=== PATIENT | male | born 1995 | race Caucasian/White ===

== ENCOUNTER 2016-09-12 08:26 | Emergency (ER) | payer BC, OTHER ==
[2016-09-12 08:36] VITALS: BP 134/78
[2016-09-12] MEDS ORDERED: Sulfacetamide 10 % OPTH.SOL LEFT EYE ONE (10:20)
[2016-09-12] MEDS ORDERED: Tetan/Diph/Pertus SYR(Tdap)* 0.5 ML SYR(BOOSTRIX) use SYR IM ONE (10:20)
--- NOTE | 2016-09-12 18:09 | ED ---
Matt Major Billy, scribed for Binh Walsh MD on 09/12/16 at 1007 . Throat Pain/Nasal Congestion - HPI Summary HPI Summary: Patient is a 21 year-old male coming to [facility] with a complaint of irritation and FB sensation in the left eye. Patient states that yesterday, he was weed whacking when he saw and felt a small pebble fly into his eye. At 0400, he woke up feeling increased irritation and teary discharge from the eye. The "scratchy " irritation is worse when blinking. He feels the FB sensation is in the medial aspect of his left upper eyelid. Last tetanus unknown. - History of Current Complaint Chief Complaint: EDEyeProblem Time Seen by Provider: 09/12/16 08:41 Hx Obtained From: Patient Onset/Duration: Sudden Onset, Lasting Hours, Still Present Severity: Moderate Associated Signs And Symptoms: Positive: FB Sensation Cough: None - Allergies/Home Medications Allergies/Adverse Reactions: Allergies Allergy/AdvReac Type Severity Reaction Status Date / Time Codeine Allergy Severe Vomiting Verified 05/11/13 15:58 PMH/Surg Hx/FS Hx/Imm Hx Previously Healthy: Yes Endocrine/Hematology History: Denies: Hx Diabetes Cardiovascular History: Denies: Hx Myocardial Infarction Sensory History: Denies: Hx Contacts or Glasses Opthamlomology History: Denies: Hx Contacts or Glasses - Surgical History Surgery Procedure, Year, and Place: skin grafts bilat legs Infectious Disease History: No Infectious Disease History: Denies: History Other Infectious Disease, Traveled Outside the [place] in Last 30 Days - Family History Known Family History: Positive: Hypertension - Social History Alcohol Use: Weekly Substance Use Type: Reports: None Smoking Status (MU): Former Smoker Review of Systems Negative: Fever, Chills Eyes: Other - irritation Positive: Drainage Negative: Ear Ache Negative: Chest Pain Negative: Shortness Of Breath, Cough Negative: Abdominal Pain, Vomiting, Nausea Negative: dysuria, hematuria Negative: Myalgia, Edema Negative: Rash All Other Systems Reviewed And Are Negative: Yes Physical Exam - Summary Physical Exam Summary: Constitutional: Well-developed, Well-nourished, Alert. (-) Distressed Skin: Warm, Dry HENT: Normocephalic; Atraumatic Eyes: There is punctate uptake of fluorescein dye at 9:00 position just medial to the left pupil. Slit lamp exam shows no foreign bodies. The eyelid was everted, and no FB was visualized. Neck: Musculoskeletal ROM normal neck. (-) JVD, (-) Stridor, (-) Tracheal deviation Cardio: Rhythm regular, rate normal, Heart sounds normal; Intact distal pulses; The pedal pulses are 2+ and symmetric. Radial pulses are 2+ and symmetric. (-) Murmur Pulmonary/Chest wall: Effort normal. (-) Respiratory distress, (-) Wheezes, (-) Rales Abd: Soft, (-) Tenderness, (-) Distension, (-) Guarding, (-) Rebound Musculoskeletal: (-) Edema Lymph: (-) Cervical adenopathy Neuro: Alert, Oriented x3 Psych: Mood and affect Normal Triage Information Reviewed: Yes Vital Signs On Initial Exam: Initial Vitals Temp Pulse Resp BP Pulse Ox 98.1 F 64 18 134/78 98 09/12/16 08:35 09/12/16 08:35 09/12/16 08:35 09/12/16 08:35 09/12/16 08:35 Vital Signs Reviewed: Yes Diagnostics - Vital Signs Vital Signs Temp Pulse Resp BP Pulse Ox 09/12/16 09:09 98.1 F 64 18 134/78 98 09/12/16 08:35 98.1 F 64 18 134/78 98 - Laboratory Lab Statement: Any lab studies that have been ordered have been reviewed, and results considered in the medical decision making process. EENT Course/Dx - Course Assessment/Plan: This is a 21 year-old male [facility] [place] [facility] possible FB in the left eye. On physical exam, there was punctate uptake of fluorescein dye at 9:00 position just medial to the left pupil, but no foreign bodies were visualized on slit lamp exam. He was discharged home with sulfacetamide eye drops and was instructed to follow up with Dr. Szymanski in 2 days. He was also given a Tetanus booster here in the ED since the date of his last Tetanus shot was unknown. All medications reviewed this visit. - Diagnoses Provider Diagnoses: Corneal abrasion Discharge - Discharge Plan Condition: Stable Disposition: HOME Patient Education Materials: Corneal Abrasion (ED) Referrals: [facility] [place] PHYSICIAN REFERRAL [Outside] Aquiles Szymanski MD [Medical Doctor] - 2 Days Additional Instructions: FOLLOW UP WITH LINE SERVICE PERSON DR. SZYMANSKI IN TWO DAYS. USE SULFACETAMIDE EYE DROPS TO THE LEFT EYE ONCE EVERY FOUR HOURS FOR THE NEXT FOUR DAYS. USE OVER-THE -COUNTER PAIN MEDICATION SUCH IBUPROFEN OR MOTRIN FOR PAIN MANAGEMENT. APPLY COLD COMPRESSES TO THE EYE. The documentation as recorded by the chastityibMatt bonilla Billy accurately reflects the service I personally performed and the decisions made by , Binh Walsh MD.
== END 2016-09-12 10:41 | disposition home or self-care (01) ==
LOC: ED 08:26
DX: S05.02XA Injury of conjunctiva and corneal abrasion without foreign body, left eye, initial encounter (principal); W20.8XXA Other cause of strike by thrown, projected or falling object, initial encounter; Y93.H9 Activity, other involving exterior property and land maintenance, building and construction; Y92.9 Unspecified place or not applicable; Z88.5 Allergy status to narcotic agent; Z87.891 Personal history of nicotine dependence
CPT/HCPCS: 90715; 99281; A9270-GY